=== PATIENT | female | born 1935 | race Asian ===

== ENCOUNTER 2018-06-15 00:44 | Emergency (ER) | payer OTHER ==
--- NOTE | 2018-06-15 00:46 | PDOC ---
History of Present Illness - General Chief Complaint: Respiratory Stated Complaint: PNEUMONIA - History of Present Illness Initial Comments: 06/15/18 01:09 This 63-year-old woman with history of HTN/renal insufficiency/lupus presents accompanied by her daughter with a few day history of cough productive of whitish sputum, fever (MAXIMUM TEMPERATURE 101 Fahrenheit earlier today ) and wheezing (new tonight). Patient has history of pneumonia requiring admission several years ago. Upper respiratory symptoms began several days ago (other family members also experiencing) progressing to productive cough within the last few days. Daughter states that she seemed to be improving until tonight when she was coughing continuously and had audible wheezing. No history of nausea/vomiting/diarrhea. 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) Disorders: Yes (KIDNEY DISEASE) Thyroid Disease: Yes (HYPERTHROID LUPUS) - Surgical History Cardiac Surgery: Yes (CARDIAC STINTS) - Suicide/Smoking/Psychosocial Hx Smoking Status: No Smoking History: Never smoked Have you smoked in the past 12 months: No Number of Cigarettes Smoked Daily: 0 Hx Alcohol Use: No Substance Use Type: None Review of Systems - Review of Systems Able to Perform ROS?: Yes Comments:: 12 point review of systems is negative except for what is noted in the history of present illness *Physical Exam - Physical Exam Comments: GENERAL: Elderly female, alert and oriented 3, speaking in full sentences, in no acute respiratory distress HEAD: Normal with no signs of trauma. EYES: PERRLA, EOMI, sclera anicteric, conjunctiva clear. ENT: Ears normal, nares patent, oropharynx clear without exudates. Dry mucous membranes. NECK: Normal range of motion, supple without lymphadenopathy, JVD, or masses. LUNGS: Breath sounds equal, expiratory crackles at bilateral aces; no rhonchi wheezing appreciated HEART:Regular rate and rhythm, normal S1 and S2 without murmur, rub or gallop. ABDOMEN:.normal bowel sounds No guarding,tenderness or rebound.No masses No distention. EXTREMITIES: Normal range of motion, no edema. No clubbing or cyanosis. No erythema, or tenderness. NEUROLOGICAL: Cranial nerves II through XII grossly intact. Normal speech. No focal neurological deficits. MUSCULOSKELETAL: Back non-tender to palpation, no CVA tenderness SKIN: Warm, Dry, normal turgor, no rashes or lesions noted. ED Treatment Course - LABORATORY CBC & Chemistry Diagram: 06/15/18 01:20 06/15/18 01:20 Medical Decision Making - Medical Decision Making This 83-year-old woman presents with a few day history of cough productive of whitish sputum, fever (generally low-grade but 101F earlier today) and wheezing /noisy breathing this evening. She is brought in by her daughter, primarily because of the progressive worsening of cough tonight. Of note, the patient states that she coughed up a significant amount of sputum on the way over to the emergency room. On presentation, patient is breathing easily without audible wheezing or other abnormal breath sounds. She is speaking in full sentences. Vital signs reveal no evidence of fever currently; pulse oximetry however is 93% on room air. Remainder of the exam as noted. Chest x-ray (PA and lateral) shows no evidence of significant infiltrate/ pleural effusion/masses CBC is essentially normal with white blood cell count of 6200. Chemistry profile notable for BUN/creatinine of 24/1.4, which daughter's states is approximately around her mother's baseline. Urinalysis is equivocal with 3+ LE (940 wbcs on microscopic) but rare bacteria. Urine sent for culture and sensitivity The patient received Rocephin 1 g IV while awaiting results of diagnostic workup. She continued to breathe comfortably without onset of wheezing or rhonchi. Patient was discharged with plan for follow-up with later today as previously scheduled. Meanwhile, she should continue to hydrate, continue her prescription medications as previously and also use the OTC cough medication that she had previously used. She should return to the emergency room as needed for shortness of breath/wheezing/high fever. *DC/Admit/Observation/Transfer Diagnosis at time of Disposition: Respiratory infection - Discharge Dispostion Disposition: HOME Condition at time of disposition: Stable - Referrals Referrals: Lucio Martinez MD [Primary Care Provider] - 24 hours - Patient Instructions Printed Discharge Instructions: DI for Acute Bronchitis Additional Instructions: Continue drinking plenty of fluids Continue medications as previously prescribed Follow-up with Dr. Martinez later on today as scheduled Return to ER if severe cough/shortness of breath/high fever occurs - Post Discharge Activity
[2018-06-15 00:56] VITALS: BP 151/80; PULSE 69; TEMP 98.7; BMI 27.1
[2018-06-15 02:17] LABS: EOS % 2.9 % (0-4.5); HEMATOCRIT 41.1 % (32.4-45.2); HEMOGLOBIN 14.1 GM/dL (10.7-15.3); LYMPH % 12.1 % (8-40); MCHC 34.3 g/dl (32.0-36.0); MEAN CELL VOLUME 87.2 fl (80-96); MEAN PLT VOLUME 9.1 fl (7.5-11.1); MONO % 10.2 % (3.8-10.2); NEUT % 73.8 % (42.8-82.8); PLATELET COUNT 169 K/MM3 (134-434); RBC 4.72 M/mm3 (3.60-5.2); RDW 14.4 % (11.6-15.6); WHITE BLOOD COUNT 6.2 K/mm3 (4.0-10.0)
[2018-06-15] MEDS ORDERED: cefTRIAXone SODIUM 1 GM VIAL ONE (02:20)
[2018-06-15 02:26] LABS: URINE APPEARANCE CLOUDY; URINE BILIRUBIN NEGATIVE (<2.0 mg/dL); URINE COLOR YELLOW; URINE GLUCOSE (UA) NEGATIVE (NEGATIVE); URINE KETONE NEGATIVE (NEGATIVE); URINE LEUK ESTERASE 3+ (NEGATIVE); URINE NITRITE NEGATIVE (NEGATIVE); URINE PROTEIN 2+ (NEGATIVE); URINE UROBILINOGEN NEGATIVE mg/dL (0.2-1.0)
[2018-06-15 02:36] LABS: URINE BACTERIA RARE /hpf (NONE SEEN); YEAST RARE
[2018-06-15 02:47] LABS: ALBUMIN 3.6 g/dl (3.4-5.0); ALK PHOS 73 U/L (45-117); ANION GAP 8 MMOL/L (8-16); BILIRUBIN,TOTAL 0.7 mg/dL (0.2-1); BLOOD UREA NITROGEN 24 mg/dL (7-18); CALCIUM 8.4 mg/dL (8.5-10.1); CHLORIDE 96 mmol/L (98-107); CO2 26 mmol/L (21-32); CREATININE 1.4 mg/dL (0.55-1.3); GLUCOSE,RANDOM 101 mg/dL (74-106); POTASSIUM 4.1 mmol/L (3.5-5.1); SGOT/AST 32 U/L (15-37); SGPT/ALT 24 U/L (13-61); SODIUM 131 mmol/L (136-145); TOT PROT 7.4 g/dl (6.4-8.2)
== END 2018-06-15 03:09 | disposition home or self-care (01) ==
LOC: FER 00:44
DX: J06.9 Acute upper respiratory infection, unspecified (principal); I10 Essential (primary) hypertension; M32.9 Systemic lupus erythematosus, unspecified
CPT/HCPCS: 36415; 71046-TC-FY; 80053; 81003; 81015; 85025; 87040; 87086; 87186; 96374; 99282-25